=== PATIENT | male | born 1975 | race Hispanic/Latino ===

== ENCOUNTER 2018-07-21 12:33 | Emergency (ER) | payer OTHER ==
[2018-07-21 12:36] VITALS: BMI 29.8
[2018-07-21 12:55] VITALS: RESP 18; TEMP 98.3
[2018-07-21] MEDS ORDERED: Lidocaine 5% Patch TD STA (13:12)
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
[2018-07-21 16:41] VITALS: BP 120/63; PULSE 66; O2SAT 99
== END 2018-07-21 16:46 | disposition home or self-care (01) ==
LOC: ED 12:33
DX: S13.4XXA Sprain of ligaments of cervical spine, initial encounter (principal); V49.9XXA Car occupant (driver) (passenger) injured in unspecified traffic accident, initial encounter; Y92.481 Parking lot as the place of occurrence of the external cause; I10 Essential (primary) hypertension